=== PATIENT | female | born 1975 | race African-American/Black ===

== ENCOUNTER 2017-09-08 17:59 | Emergency (ER) | payer BC, MEDICAID ==
[~2017-09-08] VITALS: Ht 165.1 cm; Wt 123.0 kg
[2017-09-08] MEDS ORDERED: PREDNISONE 20MG TABLET PO STA (18:50)
[2017-09-08] MEDS ORDERED: IPRATROPIUM BROMIDE (0.02%) 0.5MG/2.5ML NEB HHN STA (18:50)
[2017-09-08] MEDS ORDERED: ALBUTEROL (0.083%) 2.5MG/3ML NEB HHN STA (18:50)
[2017-09-08 20:39] VITALS: BP 144/69
== END 2017-09-08 22:06 | disposition home or self-care (01) ==
LOC: ER 21:48
DX: J45.901 Unspecified asthma with (acute) exacerbation (principal); J98.01 Acute bronchospasm; F12.10 Cannabis abuse, uncomplicated
CPT/HCPCS: 81025; 93005; 94640; 99283; J7512; J7611; Z7610